=== PATIENT | male | born 1970 | race Hispanic/Latino ===

== ENCOUNTER 2018-05-27 20:03 | Emergency (ER) | payer OTHER ==
[~2018-05-27 20:03] MED LIST: SULF1TAB42 PO
== END 2018-05-27 20:26 | disposition home or self-care (01) ==
LOC: EDH 20:03
DX: J02.9 Acute pharyngitis, unspecified (principal); Z79.899 Other long term (current) drug therapy; Z72.0 Tobacco use
CPT/HCPCS: 99281

== ENCOUNTER 2019-12-22 20:58 | Emergency (ER) | payer SELFPAY ==
[2019-12-23] LABS: BASOPHILS % (AUTO) 0.5 % (0.0-5.0); EOSINOPHILS % (AUTO) 1.6 % (0.0-8.0); HEMATOCRIT 41.3 % (42-54); LYMPHOCYTES % (AUTO) 25.8 % (21.0-51.0); MEAN CORPUSCULAR HGB CONC 33.7 g/dL (32.0-36.0); MEAN CORPUSCULAR VOLUME 95.2 fL (79-99); NEUTROPHILS % (AUTO) 63.8 % (40.0-77.0); PLATELET COUNT (AUTO) 227 K/uL (130-400); RED BLOOD CELL COUNT(AUTO) 4.34 MIL/uL (4.50-6.20); RED CELL DISTRIBUTION WIDTH 11.9 % (11.0-15.5); WHITE BLOOD COUNT (AUTO) 9.3 K/uL (4.8-10.8)
[2019-12-23] MEDS ORDERED: ZOSYN 3.375GM+NS 50ML 50 ML IV ONE (00:05)
[2019-12-23] MEDS ORDERED: TETANUS/DIPHTHERIA TOXOID [ADULT] 0.5 ML VIAL IM ONE (00:05)
[2019-12-23] MEDS ORDERED: VANCOMYCIN 1GM+NS 250ML 250 ML IV ONE (00:05)
[2019-12-23 00:08] LABS: CREATININE 1.2 mg/dL (0.5-1.5); POTASSIUM 3.8 mmol/L (3.5-5.1)
[2019-12-23 00:13] LABS: ALBUMIN 3.6 g/dL (3.5-5.0); BILIRUBIN,TOTAL 0.7 mg/dL (0.2-1.0); TOTAL PROTEIN, SERUM 7.2 g/dL (6.0-8.3)
[2019-12-23 01:05] LABS: ERYTHROCYTE SEDIMENTATION RATE 10 MM/HR (0-15)
== END 2019-12-23 03:12 | disposition home or self-care (01) ==
LOC: EDH 20:58
DX: S91.331A Puncture wound without foreign body, right foot, initial encounter (principal); L03.115 Cellulitis of right lower limb; Z79.899 Other long term (current) drug therapy; W26.8XXA Contact with other sharp object(s), not elsewhere classified, initial encounter; Y93.89 Activity, other specified; Y92.89 Other specified places as the place of occurrence of the external cause; Y99.8 Other external cause status
CPT/HCPCS: 36415; 73630; 80053; 83605; 85025; 85651; 87040 ×2; 90471; 90714; 96365; 96366; 96367; 99284; J2543; J3370

== ENCOUNTER 2023-08-27 10:29 | Emergency (ER) | payer BC ==
[~2023-08-27] VITALS: Ht 170.2 cm; Wt 68.9 kg
[2023-08-27 11:42] VITALS: BP 131/71; PULSE 73; RESP 16
[2023-08-27] MEDS: AMOX/CLAV 875/125MG TAB PO ONE ×2 (12:30→17:29)
[2023-08-27] MEDS ORDERED: IBUP-2077 PO (13:05)
[2023-08-27] MEDS ORDERED: AMOX1TAB16 PO (13:05)
[2023-08-27] MEDS: IBUPROFEN 800 MG TAB PO ONE (17:26)
[2023-08-27] MEDS: TETANUS/DIPHTHERIA TOXOID [ADULT] 0.5 ML VIAL IM ONE ×2 (17:26→17:29)
[2023-08-27] MEDS: IBUPROFEN 800 MG TAB ONE (17:29)
== END 2023-08-27 17:31 | disposition home or self-care (01) ==
LOC: EDH 10:29
DX: S61.251A Open bite of left index finger without damage to nail, initial encounter (principal); W54.0XXA Bitten by dog, initial encounter; Y93.89 Activity, other specified; Y92.89 Other specified places as the place of occurrence of the external cause; Y99.8 Other external cause status
CPT/HCPCS: 73140; 90471; 90714